=== PATIENT | female | born 1995 | race Caucasian/White ===

== ENCOUNTER 2017-04-19 10:27 | Emergency (ER) | payer BC ==
[~2017-04-19] VITALS: Wt 53.3 kg
[2017-04-19 10:29] VITALS: Wt 53.3 kg
[2017-04-19] MEDS ORDERED: FAMOTIDINE 20 MG INJ IV STA (10:46)
[2017-04-19] MEDS ORDERED: ONDANSETRON 4 MG INJ IV STA ×2 (10:46)
[2017-04-19] MEDS ORDERED: SOD CHLORIDE 0.9% 1,000 ML IV STA (10:46)
--- NOTE | 2017-04-19 10:51 | ERD ---
ER Documentation Chief Complaint Chief Complaint n/v, chills HPI 21-year-old female otherwise healthy comes in with episodes of nausea and vomiting after drinking last night. When asked how much she drinks she says "too much". She has had multiple episodes of vomiting with lower abdominal pain. She denies fevers, chills, chest pain, shortness of breath. ROS All systems reviewed and are negative except as per history of present illness. Medications Home Meds Active Scripts Famotidine* (Pepcid*) 20 Mg Tablet, 20 MG PO BID for 4 Days, TAB Prov:NADIA DEL ANGEL PA-C 04/19/17 Acetaminophen* (Tylophen*) 500 Mg Capsule, 1 CAP PO Q6H Y for PAIN AND OR ELEVATED TEMP, #20 CAP Prov:NADIA DEL ANGEL PA-C 04/19/17 Ondansetron (Ondansetron Odt) 4 Mg Tab.rapdis, 4 MG PO Q6H Y for NAUSEA AND/OR VOMITING, #10 TAB Prov:NADIA DEL ANGEL PA-C 04/19/17 PMhx/Soc Medical and Surgical Hx: pt denies Medical Hx Hx Alcohol Use: Yes (Drinks occasionally) Physical Exam Vitals Vital Signs Date Time Temp Pulse Resp B/P Pulse Ox O2 Delivery O2 Flow Rate FiO2 04/19/17 10:29 97.4 94 20 118/78 100 Physical Exam General: Well-developed, well-nourished. The patient appears in no acute distress. HEENT: Head is normocephalic, atraumatic. No scleral icterus. Neck: Supple. Nontender. Lungs: Clear to auscultation. Normal air movement. Heart: Regular rate and rhythm. S1 and S2 are normal. No murmurs, gallops, or rubs. Abdomen: Soft, nontender, nondistended. Bowel sounds are normoactive. Extremities: No clubbing or cyanosis. Normal pulses. Moving extremities x 4. No weakness. Neurologic: Alert and oriented 3. No focal deficits. Skin: Normal turgor. No rash or lesions. Result Diagram: 04/19/17 1100 04/19/17 1100 Results 24 hrs Laboratory Tests Test 04/19/17 11:00 04/19/17 12:10 White Blood Count 5.610^3/ul Red Blood Count 4.7210^6/ul Hemoglobin 13.6g/dl Hematocrit 40.5% Mean Corpuscular Volume 85.8fl Mean Corpuscular Hemoglobin 28.8pg Mean Corpuscular Hemoglobin Concent 33.6g/dl Red Cell Distribution Width 12.1% Platelet Count 23678^3/UL Mean Platelet Volume 10.6fl Neutrophils % 77.7% Lymphocytes % 16.0% Monocytes % 5.2% Eosinophils % 0.0% Basophils % 0.9% Nucleated Red Blood Cells % 0.0/100WBC Neutrophils # 4.310^3/ul Lymphocytes # 0.910^3/ul Monocytes # 0.310^3/ul Eosinophils # 0.010^3/ul Basophils # 0.110^3/ul Nucleated Red Blood Cells # 0.010^3/ul Sodium Level 146mmol/L Potassium Level 4.8mmol/L Chloride Level 104mmol/L Carbon Dioxide Level 30mmol/L Anion Gap 17 Blood Urea Nitrogen 23mg/dl Creatinine 0.67mg/dl Glucose Level 114mg/dl Calcium Level 9.8mg/dl Total Bilirubin 0.2mg/dl Direct Bilirubin 0.00mg/dl Indirect Bilirubin 0.2mg/dl Aspartate Amino Transf (AST/SGOT) 40IU/L Alanine Aminotransferase (ALT/SGPT) 45IU/L Alkaline Phosphatase 46IU/L Total Protein 8.6g/dl Albumin 5.1g/dl Globulin 3.50g/dl Albumin/Globulin Ratio 1.45 Lipase 51U/L Serum HCG, Qualitative NEGATIVE Urine Color YELLOW Urine Clarity CLOUDY Urine pH 8.0 Urine Specific Ball 1.017 Urine Ketones NEGATIVEmg/dL Urine Nitrite NEGATIVEmg/dL Urine Bilirubin NEGATIVEmg/dL Urine Urobilinogen NEGATIVEmg/dL Urine Leukocyte Esterase NEGATIVELeu/ul Urine Microscopic RBC 2/HPF Urine Microscopic WBC 5/HPF Urine Squamous Epithelial Cells FEW/HPF Urine Amorphous Crystals MODERATE/HPF Urine Hemoglobin NEGATIVEmg/dL Urine Glucose NEGATIVEmg/dL Urine Total Protein NEGATIVEmg/dl Current Medications Medications (Trade) Dose Ordered Sig/Kareem Route PRN Reason Start Time Stop Time Status Last Admin Dose Admin Sodium Chloride (NS) 1,000 ml @ 1,000 mls/hr Q1H STAT IV 04/19/17 10:46 04/19/17 11:45 DC 04/19/17 10:54 Ondansetron HCl (Zofran Inj) 4 mg ONCE STAT IV 04/19/17 10:46 04/19/17 10:48 DC 04/19/17 10:54 Famotidine (Pepcid Iv) 20 mg ONCE STAT IV 04/19/17 10:46 04/19/17 10:48 DC 04/19/17 10:54 Ondansetron HCl (Zofran Inj) 4 mg ONCE STAT IV 04/19/17 10:46 04/19/17 10:48 DC Ketorolac Tromethamine (Toradol) 30 mg ONCE STAT IV 04/19/17 12:03 04/19/17 12:04 DC 04/19/17 12:10 Procedures/MDM ED course: Patient had a saline lock established, blood and urine were obtained. She was given Zofran 4 mg IV, Pepcid 20 mg IV and a fluid bolus of normal saline. She continued to complain of nausea and she was given another dose of Zofran 4 mg IV. She was given Toradol 30 mg IV. Medical decision makin-year-old female comes in with a history of heavy consumption of alcohol resulting in nausea vomiting. Patient was given 2 doses of Zofran with Pepcid, fluids and Toradol for headache. She is feeling much better at this time is able to drink water without any emesis. Her labs are normal, urine is negative for infection and she will be discharged home. Departure Diagnosis: Primary Impression: Nausea and vomiting Additional Impression: Alcohol consumption heavy Condition: Good NADIA DEL ANGEL PA-C Apr 19, 2017 10:50
[2017-04-19 11:21] LABS: BASOPHIL # 0.1 10^3/ul (0.0-0.1); BASOPHILS % 0.9 % (0.0-2.0); HEMATOCRIT 40.5 % (37.0-47.0); HEMOGLOBIN 13.6 g/dl (12.0-16.0); LYMPHOCYTES # 0.9 10^3/ul (0.8-2.9); MEAN CORPUSCULAR HEMOGLOBIN 28.8 pg (29.0-33.0); MEAN CORPUSCULAR HGB CONC 33.6 g/dl (32.0-37.0); MEAN CORPUSCULAR VOLUME 85.8 fl (82.0-101.0); MEAN PLATELET VOLUME 10.6 fl (7.4-10.4); MONOCYTE # 0.3 10^3/ul (0.3-0.9); MONOCYTES % 5.2 % (0.0-11.0); NEUTROPHIL # 4.3 10^3/ul (1.6-7.5); NEUTROPHILS % 77.7 % (39.0-77.0); PLATELET COUNT 235 10^3/UL (140-415); RED BLOOD COUNT 4.72 10^6/ul (4.20-5.40); RED CELL DISTRIBUTION WIDTH 12.1 % (11.5-14.5); WHITE BLOOD COUNT 5.6 10^3/ul (4.8-10.8)
[2017-04-19 11:49] LABS: ALBUMIN 5.1 g/dl (3.3-4.9); ALBUMIN/GLOBULIN RATIO 1.45; BILIRUBIN,INDIRECT 0.2 mg/dl (0-1.1); BILIRUBIN,TOTAL 0.2 mg/dl (0.2-1.3); CALCIUM 9.8 mg/dl (8.4-10.2); CREATININE 0.67 mg/dl (0.44-1.00); POTASSIUM 4.8 mmol/L (3.5-5.1); TOTAL PROTEIN 8.6 g/dl (6.1-8.1)
[2017-04-19] MEDS ORDERED: KETOROLAC 30 MG INJ IV STA (12:03)
[2017-04-19] MEDS ORDERED: FAMO-96 PO (12:34)
[2017-04-19] MEDS ORDERED: ACET500C5 PO (12:34)
[2017-04-19] MEDS ORDERED: ONDA4TAB14 PO (12:34)
[2017-04-19 12:36] LABS: ADD UMIC YES; UR AMORPHOUS CRYSTAL MODERATE /HPF (NONE SEEN); UR ASCORBIC ACID NEGATIVE (NEGATIVE); UR BILIRUBIN (Dip) NEGATIVE (NEGATIVE); UR BLOOD (Dip) NEGATIVE (NEGATIVE); UR CLARITY CLOUDY (CLEAR); UR COLOR YELLOW (YELLOW); UR GLUCOSE (Dip) NEGATIVE (NEGATIVE); UR KETONES (Dip) NEGATIVE (NEGATIVE); UR LEUKOCYTE ESTERASE (Dip) NEGATIVE Leu/ul (NEGATIVE); UR NITRITE (Dip) NEGATIVE (NEGATIVE); UR RBC 2 /HPF (0-5); UR SPECIFIC GRAVITY (Dip) 1.017 (1.003-1.030); UR SQUAMOUS EPITHELIAL CELL FEW /HPF (FEW); UR TOTAL PROTEIN (Dip) NEGATIVE (NEGATIVE); UR UROBILINOGEN (Dip) NEGATIVE (NEGATIVE)
[2017-04-19 12:45] VITALS: BP 114/68; PULSE 88; RESP 18
== END 2017-04-19 12:50 | disposition home or self-care (01) ==
LOC: FTE 10:27
DX: F10.10 Alcohol abuse, uncomplicated (principal); R10.2 Pelvic and perineal pain
CPT/HCPCS: 36415; 80053; 81001; 83690; 84703; 85025; 96374; 96375; J1885; J2405; J7030; Z7502; Z7610